=== PATIENT | female | born 1985 ===

== ENCOUNTER 2016-07-01 11:44 | Emergency (ER) | payer MEDICAID ==
[2016-07-01 11:52] VITALS: BMI 42.5
[2016-07-01 11:56] VITALS: RESP 18; TEMP 97.6
--- NOTE | 2016-07-01 15:01 | RAD ---
PROCEDURE: Radiographs of the Lumbar Spine. HISTORY: lower back pain COMPARISON: None available. FINDINGS: BONES: Alignment appears satisfactory. No listhesis. No acute displaced fracture identified. DISC SPACES: Unremarkable. OTHER FINDINGS: None. IMPRESSION: No acute displaced fracture or subluxation identified.
--- NOTE | 2016-07-01 15:41 | C.PDOC ---
History Of Present Illness Patient is a 30 y/o female, whose PMHx includes schizophrenia, and bipolar disorder, that presents to the ED for evaluation of left lower back pain radiating to the left leg for unspecified time. Patient states she was prescribed new medications by her psychiatrist for insomnia, and states she last took those meds at 2:00am after drinking several bottles of beer. Patient is a poor historian, and is drowsy during examination. Time Seen by Provider: 07/01/16 12:49 Chief Complaint (Nursing): Back Pain History Per: Patient History/Exam Limitations: no limitations Onset/Duration Of Symptoms: Unknown Current Symptoms Are (Timing): Still Present Quality Of Discomfort: "Pain" Previous Symptoms: Back Pain Associated Symptoms: None. denies: Incontinence, New Weakness, New Numbness Exacerbating Factor(s): Nothing Recent travel outside of the [place]: No Additional History Per: Patient Past Medical History Reviewed: Historical Data, Nursing Documentation, Vital Signs Vital Signs: Last Vital Signs Temp 97.6 F 07/01/16 16:16 Pulse 74 07/01/16 16:16 Resp 18 07/01/16 16:16 BP 112/76 07/01/16 16:16 Pulse Ox 98 07/01/16 16:16 - Medical History PMH: Bipolar Disorder, HTN, Schizophrenia Surgical History: Cholecystectomy Family History: States: Unknown Family Hx - Social History Hx Tobacco Use: No Hx Alcohol Use: Yes Hx Substance Use: No - Immunization History Hx Tetanus Toxoid Vaccination: No Hx Influenza Vaccination: No Hx Pneumococcal Vaccination: No Review Of Systems Except As Marked, All Systems Reviewed And Found Negative. Constitutional: Negative for: Fever, Chills Gastrointestinal: Negative for: Nausea, Vomiting, Abdominal Pain Genitourinary: Negative for: Dysuria, Frequency, Hematuria Musculoskeletal: Positive for: Back Pain Neurological: Negative for: Weakness, Numbness Physical Exam - Physical Exam Appears: Non-toxic, No Acute Distress, Other (drowsy but easily aroused) Skin: Normal Color, Warm, Dry Head: Atraumatic, Normacephalic Eye(s): bilateral: Normal Inspection, EOMI Neck: Normal ROM, Supple Chest: Symmetrical Cardiovascular: Rhythm Regular Respiratory: Normal Breath Sounds, No Rales, No Rhonchi, No Wheezing Gastrointestinal/Abdominal: Soft, No Tenderness Back: No CVA Tenderness, No Vertebral Tenderness, Paraspinal Tenderness (left sacral tenderness to palpation), Straight Leg Raising ((+) left straight leg raise), Other (left sciatic notch tenderness) Extremity: Normal ROM, No Tenderness, No Pedal Edema, No Calf Tenderness, Capillary Refill (< 2 sec.), No Deformity Pulses: Left Dorsalis Pedis: Normal, Right Dorsalis Pedis: Normal Neurological/Psych: Oriented x3, Normal Speech, Normal Cognition ED Course And Treatment O2 Sat by Pulse Oximetry: 99 (on RA) Pulse Ox Interpretation: Normal Progress Note: LS spine x-ray ordered and reviewed. Patient was treated with Toradol in the ER. Medical Decision Making Medical Decision Making: pt feeling better after toradol. will d/c Disposition - Disposition Referrals: [facility] [Outside] Disposition: HOME/ ROUTINE Disposition Time: 17:25 Condition: IMPROVED Prescriptions: Ibuprofen [Motrin] 600 mg PO TID #30 tab Instructions: Sciatica (ED) Forms: General Discharge Instructions - Clinical Impression Clinical Impression: Sciatica - PA / PULMONOLOGIST / Resident Statement MD/DO has reviewed & agrees with the documentation as recorded. - Scribe Statement The provider has reviewed the documentation as recorded by the Scribe Zabrina Aranda All medical record entries made by the Ascencionibgabriela were at my direction and personally dictated by me. I have reviewed the chart and agree that the record accurately reflects my personal performance of the history, physical exam, medical decision making, and the department course for this patient. I have also personally directed, reviewed, and agree with the discharge instructions and disposition.
[2016-07-01 16:16] VITALS: BP 112/76; PULSE 74
[2016-07-01 18:41] VITALS: O2SAT 99
== END 2016-07-01 17:26 | disposition home or self-care (01) ==
LOC: C.ER 11:44
DX: M54.32 Sciatica, left side (principal)
CPT/HCPCS: 72100; 82948; 96372; 99285; J1885

== ENCOUNTER 2017-11-13 17:08 | Emergency (ER) | payer MEDICAID ==
[2017-11-13 17:08] VITALS: BMI 42.5
[2017-11-13 17:31] VITALS: RESP 20; TEMP 99
--- NOTE | 2017-11-13 18:50 | C.PDOC ---
"History Of Present Illness 32 year old female presents to the ER with a complaint of heavy vaginal bleeding for the past 2 weeks, associated with dizziness, weakness, and lightheadedness. Patient had a of September 30 2017 and had vaginal bleeding for 3 weeks which resolved on its own but began bleeding again 2 weeks ago. She states she has dark clots and goes through 2 thick pads an hour. Patient was seen by her [employer] [facility] 2 days ago who did not examine her or do blood work , they told her it was not normal and advised her to go to the hospital. She went to see Dr. Zeeshan Goode yesterday who said she looks pale and advised her to come to the hospital. Denies fever, chills, nausea, or vomiting. Time Seen by Provider: 11/13/17 18:15 Chief Complaint (Nursing): Female Genitourinary History Per: Patient History/Exam Limitations: no limitations Onset/Duration Of Symptoms: Days Current Symptoms Are (Timing): Still Present Quality Of Discomfort: Unable To Describe Associated Symptoms: Other ((-) SOB (+) Dizziness, Lightheadedness, Weakness). denies: Fever, Chills, Nausea, Vomiting, Chest Pain Alleviating Factors: None Recent travel outside of the [place]: No Abnormal Vaginal Bleeding: Yes Past Medical History Reviewed: Historical Data, Nursing Documentation, Vital Signs Vital Signs: Last Vital Signs Temp 99 F 11/13/17 17:26 Pulse 73 11/13/17 21:50 Resp 20 11/13/17 21:50 BP 109/80 11/13/17 17:26 Pulse Ox 98 11/13/17 22:44 - Medical History PMH: Anemia, Bipolar Disorder, HTN, Schizophrenia Surgical History: Cholecystectomy Family History: States: Unknown Family Hx - Social History Hx Tobacco Use: No Hx Alcohol Use: No Hx Substance Use: No - Immunization History Hx Tetanus Toxoid Vaccination: Yes Hx Influenza Vaccination: No Hx Pneumococcal Vaccination: Yes Review Of Systems Constitutional: Positive for: Weakness. Negative for: Fever, Chills Cardiovascular: Positive for: Light Headedness. Negative for: Chest Pain, Palpitations Respiratory: Negative for: Cough, Shortness of Breath Gastrointestinal: Negative for: Nausea, Vomiting Genitourinary: Positive for: Vaginal Bleeding. Negative for: Vaginal Discharge Neurological: Positive for: Dizziness Physical Exam - Physical Exam Appears: Non-toxic, Other (Obese) Skin: Warm, Dry, Pale Head: Atraumatic, Normacephalic Eye(s): bilateral: Normal Inspection Oral Mucosa: Moist Chest: Symmetrical, No Tenderness Cardiovascular: Rhythm Regular Respiratory: Normal Breath Sounds, No Rales, No Rhonchi, No Wheezing Gastrointestinal/Abdominal: Soft, No Tenderness Back: No CVA Tenderness Neurological/Psych: Oriented x3, Normal Speech ED Course And Treatment - Laboratory Results Result Diagrams: 11/13/17 19:17 11/13/17 19:17 Lab Interpretation: No Acute Changes (Hgb 10.5) O2 Sat by Pulse Oximetry: 98 (Room air) Pulse Ox Interpretation: Normal - CT Scan/US Pelvic US Other Rad Studies (CT/US): Read By Radiologist, Radiology Report Reviewed CT/US Interpretation: EXAM: US Pelvis Complete, Transabdominal. CLINICAL HISTORY: 32 years old, female; Signs and symptoms; Menstruation abnormalities; Irregular menstruation; Prior. surgery; Surgery date: 1-6 months; Surgery type : C section in august; Additional info: Vag bleeding. TECHNIQUE: Real-time transabdominal pelvic ultrasound (complete) with image documentation. COMPARISON: No relevant prior studies available. FINDINGS: Uterus/cervix: Unremarkable. Normal endometrial stripe thickness 5.1 mm. No myometrial mass. Uterus measures 10.5 cm x 4.9 cm x 6.8 cm. Right ovary: Unremarkable. No mass. Normal blood flow. 2.7 cm x 1.4 cm x 2.6 cm. Left ovary: Unremarkable. No mass. Normal blood flow. 2.2 cm x 2.2 cm x1.7 cm. Free fluid: No free fluid. IMPRESSION: Normal pelvic ultrasound. . EXAM: US Pelvis, Transvaginal. CLINICAL HISTORY: 32 years old, female; Signs and symptoms; Menstruation abnormalities; Irregular menstruation; Prior. surgery; Surgery date: 1-6 months; Surgery type: C section in august; Additional info: Vag bleeding. TECHNIQUE: Real-time transvaginal pelvic ultrasound (complete) with image documentation. Transvaginal. imaging was used for better evaluation of the endometrium and adnexa. STORMY SHELLEY | Preliminary Radiology Report. CONFIDENTIALITY STATEMENT. This report is intended only for the use of the referring physician , and only in accordance with law, If you received this in error, call . Page 2 of 2. COMPARISON: No relevant prior studies available. FINDINGS : Uterus/cervix: Unremarkable. Normal endometrial stripe thickness 5.8 mm. No myometrial mass. 8.5 cm x 6.1 cm x 6.7 cm. Right ovary: Unremarkable. No mass. Normal blood flow. 3.6 cm x 4.4 cm x 2.1 cm. Left ovary: Unremarkable. No mass. Normal blood flow. 2.8 cm a 2 x 1 cm x 2.2 cm. Free fluid: No free fluid. IMPRESSION: Normal pelvic ultrasound. Thank you for allowing us to participate in the care of your patient. Dictated and Authenticated by: Ford Myers MD. 11/13/2017 10:42 PM Eastern Time ([place] & [place]) Progress Note: Blood work, urinalysis, and transvaginal US ordered. Reevaluation Time: 23:01 Reassessment Condition: Unchanged (Patient appears very comfortable.) Disposition Counseled Patient/Family Regarding: Studies Performed, Diagnosis, Need For Followup - Disposition Referrals: Verito Falk MD [Staff Provider] - Disposition: HOME/ ROUTINE Disposition Time: 23:02 Condition: STABLE Additional Instructions: Follow up with your maintenance helper later this week. Continue taking the iron tablets, increasing to 2-3 times a day. Instructions: Heavy Periods Forms: [employer] [place] [facility] (Tristanian) - Clinical Impression Clinical Impression: Episode of heavy vaginal bleeding - Scribe Statement The provider has reviewed the documentation as recorded by the Scribe Bin Feldman All medical record entries made by the Scribe were at my direction and personally dictated by me. I have reviewed the chart and agree that the record accurately reflects my personal performance of the history, physical exam, medical decision making, and the department course for this patient. I have also personally directed, reviewed, and agree with the discharge instructions and disposition."
[2017-11-13 19:26] LABS: BASO % 0.4 % (0.0-2.0); EOS # 0.3 K/uL (0.0-0.7); EOS % 2.7 % (0.0-4.0); HEMOGLOBIN 10.5 g/dL (11.0-16.0); LYMPH % 27.8 % (20.0-40.0); MEAN CELL VOLUME 83.2 fL (81.0-99.0); MEAN CORPUSCULAR HEMOGLOBIN 28.3 pg (27.0-31.0); MEAN PLATELET VOLUME 9.4 fL (7.2-11.7); MONO # 0.7 K/uL (0.0-0.8); MONO % 6.3 % (0.0-10.0); NEUT # 6.8 K/uL (1.8-7.0); NEUT % 62.8 % (50.0-75.0); NRBC % 0.1 % (0.0-2.0); RBC 3.7 Mil/uL (3.80-5.20); RED CELL DISTRIBUTION WIDTH 14.9 % (11.5-14.5); WHITE BLOOD COUNT 10.8 K/uL (4.8-10.8)
[2017-11-13 19:37] LABS: ALB/GLOB RATIO 1.4 (1.0-2.1); ALBUMIN 4.3 g/dL (3.5-5.0); ALT/SGPT 71 U/L (9-52); AST/SGOT 45 U/L (14-36); BLOOD UREA NITROGEN 12 mg/dL (7-17); CALCIUM 9.4 mg/dl (8.6-10.4); GFR NON-AFRICAN AMERICAN > 60
[2017-11-13 19:54] LABS: URINE BACTERIA OCC (<OCC); URINE BILIRUBIN NEGATIVE (NEGATIVE); URINE BLOOD 3+ (NEGATIVE); URINE CLARITY Hazy (Clear); URINE COLOR Red (YELLOW); URINE GLUCOSE (UA) NORMAL (Normal); URINE LEUKOCYTE ESTERASE TRACE Leu/uL (Negative); URINE PROTEIN 2+ mg/dL (NEGATIVE); URINE UROBILINOGEN NORMAL mg/dL (0.2-1.0)
[2017-11-13 23:45] VITALS: BP 107/68; PULSE 76; O2SAT 100
--- NOTE | 2017-11-14 11:28 | US ---
Date of service: 11/13/2017 HISTORY: vag bleeding COMPARISON: None available. TECHNIQUE: Real-time transabdominal pelvic ultrasound was performed. In addition a transvaginal pelvic ultrasound was necessary to better depict pelvic anatomy. FINDINGS: UTERUS: Measures 9.5 x 5.6 x 6.8 cm. Anteverted. ENDOMETRIUM: Measures 5 mm in diameter. CERVIX: No cervical abnormality identified. RIGHT OVARY: Measures 3.6 x 1.8 x 3.1 cm. Blood flow is demonstrated. LEFT OVARY: Measures 2.4 x 2.0 x 2.3 cm. Blood flow is demonstrated. FREE FLUID: No significant free fluid noted. OTHER FINDINGS: None. IMPRESSION: Unremarkable pelvic ultrasound as above. Preliminary impression was provided by virtual radiologic.
== END 2017-11-13 23:40 | disposition home or self-care (01) ==
LOC: C.ER 17:08
DX: N93.9 Abnormal uterine and vaginal bleeding, unspecified (principal)